=== PATIENT | female | born 1970 | race American Indian/Alaskan Native ===

== ENCOUNTER 2018-06-19 09:23 | Day surgery (SDC) | payer OTHER ==
[~2018-06-19 09:23] MED LIST: NACL 0.9% 1000 ML 1,000 ML IV SCH
--- NOTE | 2018-06-19 10:10 | Anesthesia Day of Surgery ---
Anesthesia Day of Surgery - Day of Surgery Patient Examined: Yes Patient H&P Reviewed: Yes Patient is NPO: Yes
--- NOTE | 2018-06-19 10:10 | Anesthesia Consultation ---
Anesthesia Consult and Med Hx Date of service: 06/19/18 - Airway Anesthetic Teeth Evaluation: Good ROM Head & Neck: Adequate Mental/Hyoid Distance: Adequate Mallampati Class: Class II Intubation Access Assessment: Probably Good - Pulmonary Exam CTA: Yes - Cardiac Exam Cardiac Exam: RRR - Pre-Operative Health Status ASA Pre-Surgery Classification: ASA2 Proposed Anesthetic Plan: MAC - Pulmonary Hx Asthma: Yes - Cardiovascular System Hx Hypertension: Yes
[2018-06-19] MEDS ORDERED: DIPRIVAN 10 MG/ML IV ONE ×3 (10:31→12:10)
[2018-06-19] MEDS ORDERED: XYLOCAINE MPF 2% ONE (11:27)
--- NOTE | 2018-06-19 12:38 | Operative Report ---
Operative Report Operative Report: Date of procedure: 06/19/2018 Procedure: Colonoscopy with submucosal injection, Cold snare polypectomy, Multiple Hot Biopsy Polypectomies. Ablation of multiple polyps. Attending physician: Adi Hope MD Networking Specialist: Adi Hope MD Indication: Patient is a 47-year-old female who presents for screening colonoscopy. Patient also has a family history of colon cancer. This colonoscopy serves to evaluate patient so that treatment may be directed based on the findings. Consent: Informed consent was obtained after advising the patient and family regarding nature of this procedure, its indications, potential benefits as well as possible complications including but not limited to bleeding perforation and adverse reaction to medication, infection as well as other cardiopulmonary complications. An informed written and verbal consent was then obtained after due opportunity was provided for questions and answers. Monitoring: Patient was monitored continuously with pulse oximetry and electrocardiographic recordings as well as blood pressure recordings. Vital signs remained stable throughout this procedure with no untoward events. Preoperative assessment: Patient was assessed immediately prior to this procedure for capacity to tolerate monitored anesthesia care and moderate sedation as well as general anesthesia. Patient's ASA classification is 2, Mallampati class is 2, Hyomental distance is 3. Instrument: [employer] video colonoscope Medications: Propofol given intravenously in divided doses. For details please refer to anesthesia records. Description of procedure: Patient was placed in the left lateral decubitus position after achieving sedation, a digital rectal examination was performed following which the colonoscope was introduced into the anal verge and advanced to the cecum which was identified by the cecal valve, the appendiceal orifice, as well as by the cecal strap and direct transillumination. The colonoscope was subsequently withdrawn with careful inspection of all mucosal surfaces. Patient tolerated this procedure well and was subsequently taken to the recovery room. The following findings were noted. Findings: Patient had multiple diminutive flat polyps in the rectum. 13 of this polyps removed by hot biopsy polypectomy. 4 polyps were ablated. There where additional polyps however the preparation in this area was suboptimal. The rectum and the sigmoid colon was vigorously irrigated as much as possible to achieve visualization. Still however there were densely adherent stool particles and thick liquid stool in the section. In the descending colon, patient had a flat 8 mm polyp with a mucus Endoscopic characteristics suggestive of a serrated polyp. This was removed with submucosal injection of saline and subsequent cold snare polypectomy. The specimen was retrieved. There were areas of density at Garcia stool in the ascending colon and the cecum. There were no other mucosal abnormalities. On the retroflex view of the anal verge, patient had prominent internal hemorrhoids. Impression: Hospital rectal polyp status post ablation hot biopsy polypectomy Descending colon polyp status post submucosal injection and cold snare polypectomy. Retained stool. Internal hemorrhoids. Plan: Follow pathology report. High-fiber diet. Repeat colonoscopy in 6 months to 1 year course of the findings of multiple polyps, poor colonoscopic preparation and family history of colon polyps. Patient may benefit from hemorrhoidal band ligation in the future.
--- NOTE | 2018-06-19 12:39 | Discharge Summary ---
Short Stay Discharge Plan Activity: advance as tolerated Weight Bearing Status: Weight Bear as Tolerated Diet: regular Additional Instructions: Post Sedation D/C Instructions When you return home you may resume your regular diet unless otherwise directed. -Go directly home from the hospital and rest quietly. You may resume normal activities tomorrow. -Do NOT drive, return to work, operate any machinery or make any important personal or business decisions today. -Do NOT drink any alcohol or take nerve or sleeping drugs. They add to the effects of the medicine still present in your body. Follow up with: JANIE MARTELL MD [Primary Care Provider] - 7 Days
[2018-06-19 13:10] VITALS: BP 153/80
--- NOTE | 2018-06-19 18:08 | Operative Report ---
Operative Report Operative Report: Corrected Report Date of procedure: 06/19/2018 Procedure: Colonoscopy with submucosal injection, Cold snare polypectomy, Multiple Hot Biopsy Polypectomies. Ablation of multiple polyps. Attending physician: Adi Hope MD Traffic And Transport Planner: Adi Hope MD Indication: Patient is a 47-year-old female who presents for screening colonoscopy. Patient also has a family history of colon cancer. This colonoscopy serves to evaluate patient so that treatment may be directed based on the findings. Consent: Informed consent was obtained after advising the patient and family regarding nature of this procedure, its indications, potential benefits as well as possible complications including but not limited to bleeding perforation and adverse reaction to medication, infection as well as other cardiopulmonary complications. An informed written and verbal consent was then obtained after due opportunity was provided for questions and answers. Monitoring: Patient was monitored continuously with pulse oximetry and electrocardiographic recordings as well as blood pressure recordings. Vital signs remained stable throughout this procedure with no untoward events. Preoperative assessment: Patient was assessed immediately prior to this procedure for capacity to tolerate monitored anesthesia care and moderate sedation as well as general anesthesia. Patient's ASA classification is 2, Mallampati class is 2, Hyomental distance is 3. Instrument: [employer] video colonoscope Medications: Propofol given intravenously in divided doses. For details please refer to anesthesia records. Description of procedure: Patient was placed in the left lateral decubitus position after achieving sedation, a digital rectal examination was performed following which the colonoscope was introduced into the anal verge and advanced to the cecum which was identified by the cecal valve, the appendiceal orifice, as well as by the cecal strap and direct transillumination. The colonoscope was subsequently withdrawn with careful inspection of all mucosal surfaces. Patient tolerated this procedure well and was subsequently taken to the recovery room. The following findings were noted. Findings: Patient had multiple diminutive flat polyps in the rectum. 13 of these polyps were removed by hot biopsy polypectomy. 4 polyps were ablated. There may be additional polyps however the preparation in this area was suboptimal. The rectum and the sigmoid colon was vigorously irrigated as much as possible to achieve visualization. Still however there were densely adherent stool particles and thick liquid stool in the section. In the descending colon, patient had a flat 8 mm polyp with a mucus cap and endoscopic characteristics suggestive of a serrated polyp. This was removed with submucosal injection of saline and subsequent cold snare polypectomy. The specimen was retrieved. There were areas of high stool density in the ascending colon and the cecum. There were no other mucosal abnormalities. On the retroflex view of the anal verge, patient had prominent internal hemorrhoids. Impression: Rectal polyp status post ablation hot biopsy polypectomy Descending colon polyp status post submucosal injection and cold snare polypectomy. Retained stool. Poor colonoscopic preparation Internal hemorrhoids. Plan: Follow pathology report. High-fiber diet. Repeat colonoscopy in 6 months to 1 year because of the findings of multiple polyps, poor colonoscopic preparation and family history of colon cancer Patient may benefit from hemorrhoidal band ligation in the future.
[2018-06-19] MEDS ORDERED: WATER FOR IRRIG STERILE IR ONE (20:03)
[2018-06-19] MEDS ORDERED: WATER FOR IRRIG STERILE ONE (20:04)
== END 2018-06-19 09:24 | disposition home or self-care (01) ==
LOC: GIO 09:23
PROVIDERS: ATTEND Internal Medicine Gastroenterology
DX: Z12.11 Encounter for screening for malignant neoplasm of colon (principal); D12.8 Benign neoplasm of rectum; K64.8 Other hemorrhoids; I10 Essential (primary) hypertension; J45.909 Unspecified asthma, uncomplicated; M19.90 Unspecified osteoarthritis, unspecified site; Z79.899 Other long term (current) drug therapy
CPT/HCPCS: 45381; 45384; 45385; 45388; 88305; J2704; J7030

== ENCOUNTER 2019-05-05 19:51 | Emergency (ER) | payer OTHER ==
[2019-05-05 19:58] VITALS: BP 160/83
--- NOTE | 2019-05-05 21:18 | XRay Report ---
LEFT FOOT 3 VIEWS INDICATION / CLINICAL INFORMATION: LEFT FOOT PAIN-NON TRAUMATIC. COMPARISON: None available. FINDINGS: Negative. Signer Name: Ruben Amador MD Signed: 05/05/2019 9:14 PM Workstation Name: [id number]
--- NOTE | 2019-05-05 22:28 | Emergency Department Report ---
ED Extremity Problem HPI - General Chief complaint: Extremity Injury, Lower Stated complaint: LT FOOT PAIN Time Seen by Provider: 05/05/19 22:17 Source: patient Mode of arrival: Ambulatory Limitations: No Limitations - History of Present Illness Initial comments: Patient is a 48-year-old female presents to the emergency room with complaints of left foot pain that began a week ago. She denies any fall or injury. She states that she does work on her feet all day long. she denies any numbness or weakness. She has a history of high blood pressure and did not take her medication today. She denies any allergies to medications. - Related Data Home Medications Medication Instructions Recorded Confirmed Last Taken Fluticasone 50 mg INNOSTRIL PRN PRN 06/19/18 02/16/19 Unknown Lisinopril 20 mg PO DAILY 06/19/18 02/16/19 06/18/18 VENTOLIN Inhaler(NF) 2 puff INHALATION PRN PRN 06/19/18 02/16/19 06/17/18 Meloxicam 1 tab PO DAILY 02/16/19 02/16/19 Unknown Pseudoephedrine 1 tab PO PRN PRN 02/16/19 02/16/19 Unknown Symbicort 160-4.5 Mcg Inhaler 2 puff INHALATION DAILY 02/16/19 02/16/19 Unknown Previous Rx's Medication Instructions Recorded Last Taken Type Naproxen [Naprosyn] 500 mg PO BID PRN #14 tablet 05/05/19 Unknown Rx Allergies Allergy/AdvReac Type Severity Reaction Status Date / Time chocolate flavor Allergy Swelling Verified 02/16/19 14:05 tomato Allergy Swelling Verified 02/16/19 14:05 ED Review of Systems ROS: Stated complaint: LT FOOT PAIN Other details as noted in HPI Comment: All other systems reviewed and negative ED Past Medical Hx - Past Medical History Hx Hypertension: Yes Hx Arthritis: Yes Hx Asthma: Yes - Social History Smoking Status: Unknown if ever smoked Substance Use Type: None - Medications Home Medications: Home Medications Medication Instructions Recorded Confirmed Last Taken Type Fluticasone 50 mg INNOSTRIL PRN PRN 06/19/18 02/16/19 Unknown History Lisinopril 20 mg PO DAILY 06/19/18 02/16/19 06/18/18 History VENTOLIN Inhaler(NF) 2 puff INHALATION PRN PRN 06/19/18 02/16/19 06/17/18 History Meloxicam 1 tab PO DAILY 02/16/19 02/16/19 Unknown History Pseudoephedrine 1 tab PO PRN PRN 02/16/19 02/16/19 Unknown History Symbicort 160-4.5 Mcg Inhaler 2 puff INHALATION DAILY 02/16/19 02/16/19 Unknown History Naproxen [Naprosyn] 500 mg PO BID PRN #14 tablet 05/05/19 Unknown Rx ED Physical Exam - General Limitations: No Limitations General appearance: alert, in no apparent distress - Head Head exam: Present: atraumatic, normocephalic - Eye Eye exam: Present: normal appearance - ENT ENT exam: Present: mucous membranes moist - Extremities Exam Extremities exam: Present: other (TTP to the plantar surface over all the MTP joints, ttp over the medial portion of the dorsal surface of the left foot, no obvious deformity, no ecchymosis, no edema, no erythema, FROM of the left foot with some discomfort, FROM of the left toes, 2+ distal pulses, sensation intact, no TTP of the left ankle) - Neurological Exam Neurological exam: Present: alert, oriented X3 - Psychiatric Psychiatric exam: Present: normal affect, normal mood - Skin Skin exam: Present: warm, dry, intact ED Course Vital Signs 05/05/19 05/05/19 19:57 20:21 Temperature 98.4 F 98.4 F Pulse Rate 87 87 Respiratory 18 18 Rate Blood Pressure 160/83 160/83 O2 Sat by Pulse 98 100 Oximetry ED Medical Decision Making - Radiology Data Radiology results: report reviewed Fluoro Time In Minutes: LEFT FOOT 3 VIEWS INDICATION / CLINICAL INFORMATION: LEFT FOOT PAIN-NON TRAUMATIC. COMPARISON: None available. FINDINGS: Negative. Signer Name: Ruben Amador MD Signed: 05/05/2019 9:14 PM Workstation Name: [id number] Transcribed By: TM Dictated By: Ruben Amador MD Electronically Authenticated By: Ruben Amador MD Signed Date/Time: 05/05/192113 - Medical Decision Making Patient is a 48-year-old female presents to the emergency room with complaints of left foot pain that began a week ago. She denies any fall or injury. She states that she does work on her feet all day long. she denies any numbness or weakness. She has a history of high blood pressure and did not take her medication today. She denies any allergies to medications. on exam: TTP to the plantar surface over all the MTP joints, ttp over the medial portion of the dorsal surface of the left foot, no obvious deformity, no ecchymosis, no edema, no erythema, FROM of the left foot with some discomfort, FROM of the left toes, 2+ distal pulses, sensation intact, no TTP of the left ankle. XR of the left foot is normal. pt given prescription for naproxen. advised to please take medication as prescribed as needed. May use ice for 15 minutes at a time, rest, elevation of the leg. May wear compression stockings while at work. Follow up with an orthopedic doctor in the next 2-3 days for further evaluation. Return to the emergency room for any new or worsening symptoms. - Differential Diagnosis strain, sprain, fx, dislocation, arthritis, tendonitis Critical care attestation.: If time is entered above; I have spent that time in minutes in the direct care of this critically ill patient, excluding procedure time. ED Disposition Clinical Impression: Left foot pain Disposition: - TO HOME OR SELFCARE Is pt being admited?: No Does the pt Need Aspirin: No Condition: Stable Instructions: Arthralgia (ED), RICE Therapy (ED) Additional Instructions: Please take medication as prescribed as needed. May use ice for 15 minutes at a time, rest, elevation of the leg. May wear compression stockings while at work. Follow up with an orthopedic doctor in the next 2-3 days for further evaluation. Return to the emergency room for any new or worsening symptoms. Prescriptions: Naproxen [Naprosyn] 500 mg PO BID PRN #14 tablet PRN Reason: pain Referrals: ARCHANA SINGH MD [Staff Physician] - 2-3 Days [facility] [Provider Group] - 2-3 Days Time of Disposition: 22:27 Print Language: VIETNAMESE
== END 2019-05-05 22:50 | disposition home or self-care (01) ==
LOC: ED 19:51
DX: M79.672 Pain in left foot (principal); I10 Essential (primary) hypertension; M19.90 Unspecified osteoarthritis, unspecified site; J45.909 Unspecified asthma, uncomplicated; Z91.018 Allergy to other foods; Z79.899 Other long term (current) drug therapy
CPT/HCPCS: 99283